=== PATIENT | male | born 1965 | race Caucasian/White ===

== ENCOUNTER 2023-04-11 15:21 | Emergency (ER) | payer OTHER, SELFPAY ==
[2023-04-11 15:28] VITALS: BP 142/88; PULSE 76; RESP 18; TEMP 36.3; O2SAT 99
--- NOTE | 2023-04-11 15:55 | ED.GENADULT ---
HPI - General Adult General Chief complaint: Extremity Injury, Upper Stated complaint: fall / lt arm and leg injury Time Seen by Provider: 04/11/23 15:26 Source: patient Mode of arrival: ambulatory Limitations: no limitations History of Present Illness HPI narrative: Patient is a 58-year-old male who presents with upper back pain between shoulder blades, left arm and left leg pain after fall on . [place] slipped in his wet gear falling onto the deck. Patient denies hitting his head. Since then patient states he has been very stiff and sore if he sits in 1 position for too long. Also reports large bruise to left bicep that continues to spread down his arm. Denies any numbness tingling or weakness to extremities, denies any headaches or vision changes. Has tried ibuprofen with mild relief. Related Data Home Medications Medication Instructions Recorded Confirmed cyanocobalamin (vitamin B-12) 1,000 mcg PO DAILY 03/21/23 04/11/23 1,000 mcg tablet doxycycline hyclate 100 mg tablet 100 mg PO DAILY 04/11/23 04/11/23 Allergies Allergy/AdvReac Type Severity Reaction Status Date / Time Penicillins AdvReac Mild Rash Verified 04/11/23 15:27 Review of Systems Review of Systems: All systems reviewed & are unremarkable except as noted in HPI and below Constitutional: Constitutional: Reports body ache(s), Denies chills, Denies fatigue, Denies fever(s), Denies headache(s), Denies malaise and Denies weakness Eyes: Eyes: Denies blurry vision, Denies irritation and Denies loss of vision ENT: Denies otalgia, Denies headache(s), Denies nasal discharge, Denies sinus pain and Denies sore throat Cardiovascular: Cardiovascular: Denies chest pain, Denies irregular heart rhythm and Denies dyspnea Respiratory: Respiratory: Denies dyspnea Gastrointestinal: Gastrointestinal: Denies abdominal pain, Denies melena, Denies hematochezia, Denies diarrhea, Denies nausea and Denies vomiting Musculoskeletal: Musculoskeletal: Denies back pain, Denies myalgias, Denies arthralgias and Reports stiffness Integumentary/Breasts: Skin/Breast: Denies pruritus and Denies rash Neurologic: Denies headache(s), Denies loss of vision and Denies weakness Psychiatric: Psychiatric: Reports no additional psychiatric complaints Endocrine: Endocrine: Denies fatigue PMFSH Past Medical History Medical History (Updated 04/11/23 @ 16:00 by Eli Zimmer APRN) Colon polyps tubular adenoma, hyperplastic DM2 (diabetes mellitus, type 2) Dyslipidemia HTN (hypertension) Rosacea Transaminitis Vitamin B12 deficiency Vitamin D deficiency Surgical History Surgical History H/O ventral hernia repair Dr. Berry 2002 History of arthroscopy of right shoulder Family History Family History Other Cerebrovascular accident Diabetes mellitus Social History Social History (Updated 03/14/23 @ 12:04 by Marie Shah MA) Smoking status: Former smoker Alcohol intake: current Drinks per week: 4 Substance use: never Current Housing: Decline to Answer Concerned About Future Housing: Decline to Answer Difficulty Paying Gas/Electric Bills: Decline to Answer Difficulty Paying for Meds: Decline to Answer Currently Unemployed: Decline to Answer Education: Decline to Answer Difficulty w/ Childcare or Family Care: Decline to Answer Living arrangements: with family Occupation/Education: occupation Gender identity (if verbalized by the patient): Male Comments At time of signature, agree with nursing past medical, surgical, social and family history. There is no relevant family history pertinent to the presenting complaint. Exam Const: General: cooperative, healthy appearing, comfortable, no acute distress and well nourished Nutritional Appearance: well nourished Orientation/consciousnes
== END 2023-04-11 16:03 | disposition home or self-care (01) ==
PROVIDERS: Emergency Provider Nurse Practitioner Family; PCP Physician Assistant Medical
DX: M54.6 Pain in thoracic spine (principal); M79.602 Pain in left arm; M79.605 Pain in left leg; E11.9 Type 2 diabetes mellitus without complications; E78.5 Hyperlipidemia, unspecified; I10 Essential (primary) hypertension; E53.8 Deficiency of other specified B group vitamins; Z87.891 Personal history of nicotine dependence
CPT/HCPCS: 99213; G0463

== ENCOUNTER 2025-01-01 00:35 | Day surgery (SDC) | payer OTHER, SELFPAY ==
[2024-12-26 12:03] VITALS: BMI 35.6
--- OUTSIDE RECORDS SUMMARY | 2025-01-01 00:38 | XMS_ITS | Clinical Summary ---
Author Organization [employer] Address [address] [place] [address] Care Team Providers Care Laborer Car Barn Name Role Phone Unavailable Primary Care Provider Unavailabl e Allergies No known active allergies Medications losartan (COZAAR) 100 mg tablet 08/02/2013 Activ e Active Problems No known active problems Immunizations Immunization Administration Dates Next Due INFLUENZA VACCINE QUADRIVALENT 6 MOS UP PF IM Social History Tobacco Use Types Packs/Day Years Used Date Smoking Tobacco: Some Days Cigars Smokeless Tobacco: Never Alcohol Use Standard Drinks/Week Comments No 0 (1 standard drink = 0.6 oz pur e alcohol) Sex and Gender Information Value Date Recorded Sex Assigned at Not on file Legal Sex 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 Gender Identity Not on file Sexual Orientation Not on file Last Filed Vital Signs Vital Sign Reading Time Taken Comments Blood Pressure 112/76 08/29/2013 1:11 PM HOTEL SERVICE MANAGER Pulse 85 08/29/2013 1:11 PM HOTEL SERVICE MANAGER Temperature 36.7 C (98.1 F) 08/29/2013 1:11 PM HOTEL SERVICE MANAGER Respiratory Rate 20 08/29/2013 1:11 PM HOTEL SERVICE MANAGER Oxygen Saturation 97% 08/29/2013 1:11 PM HOTEL SERVICE MANAGER Inhaled Oxygen Concentration - - Weight 131.1 kg (289 lb) 08/29/2013 1:11 PM HOTEL SERVICE MANAGER Height 182.9 cm (6') 08/29/2013 1:11 PM HOTEL SERVICE MANAGER Body Mass Index 39.2 08/29/2013 1:11 PM HOTEL SERVICE MANAGER Plan of Treatment Health Maintenance Due Date Last Done Comments DTAP/TDAP/TD VACCINES (1 - Tdap) 1985 HEPATITIS B VACCINES (1 of 3 - 19+ 3-dose series) 04/1985 COLORECTAL SCREENING 2011 Colorectal Cancer Screening 2011 FIT-DNA Q 3 years 2011 FIT/FOBT Q 1 year 2011 Flex Sig/CT Colonography Q 5 years 2011 ZOSTER VACCINE (1 of 2) 01/08/2016 INFLUENZA VACCINE (#1) 2024 07/25/2019 Insurance [facility] OPEN ACCESS HMO
--- OUTSIDE RECORDS SUMMARY | 2025-01-01 00:38 | XMS_ITS | Clinical Summary ---
Author Organization [facility] Address [address] [address] Care Team Providers Care Motors Assembler Name Role Phone Francisco J Tirado MD Primary Care Provider [phone] Allergies No known active allergies Medications amLODIPine (NORVASC) 5 mg tablet TK 1 T PO QAM 3 9 Active losartan (COZAAR) 100 mg tablet TK 1 T PO QD 3 9 Active Ozempic 1 mg/dose (4 mg/3 mL) pen injector injection ADMINISTER 1 MG UNDER THE SKIN WEEKLY 4 Active Ozempic 0.25 mg or 0.5 mg (2 mg/3 mL) pen injector injection ADMINISTER 0.25 MG UNDER THE SKIN WEEKLY FOR 4 WEEKS 4 Active rosuvastatin (CRESTOR) 10 mg tablet Take 1 tablet (10 mg total) by mouth daily 4 Active predniSONE (DELTASONE) 20 mg tablet 4 Active BD Ultra-Fine Orig Pen Needle 29 gauge x 1/2 needle USE WITH OZEMPIC DIRECTED 4 Active methocarbamoL (ROBAXIN) 500 mg tablet Take 1 tablet (500 mg total) by mouth 3 (three) times a day as needed for muscle spasms 4 Active metFORMIN XR (GLUCOPHAGE XR) 500 mg 24 hr tablet Take 1 tablet (500 mg total) by mouth cloth stretcher before breakfast 1 Active ketoconazole (NIZORAL) 2 % shampoo APPLY EXTERNALLY TO SCALP/BODY DAILY DIRECTED 10/28/202 4 Active fluorouraciL (EFUDEX) 5 % cream 4 Active doxycycline 100 mg tablet Take 1 tablet/capsule (100 mg total) by mouth daily 4 Active Active Problems Problem Noted Date Diagnosed Date Encounter for screening colonoscopy 01/03/2019 Overview (01/03/2019): Added automatically from request for surgery [id number] Hypertension 09/13/2014 Overview (2017): High blood pressure Surgical History Surgery Date Site/Laterality Comments UMBILICAL HERNIA REPAIR ROTATOR CUFF REPAIR 10/03/2005 - 10/02/2006 Right SOFT TISSUE CYST EXCISION 10/03/2014 - 10/02/2015 Family History Medical History Relation Name Comments Diabetes Other 1 Family history of Diabetes mellitus; Other Other 2 Family history of Melanoma Skin; Relation Name Status Comments Other 1 Other 2 Social History Tobacco Use Types Packs/Day Years Used Date Smoking Tobacco: Some Days Smokeless Tobacco: Never Comments:10/week Alcohol Use Standard Drinks/Week Comments Yes 0 (1 standard drink = 0.6 oz pur e alcohol) 5 days a week Sex and Gender Information Value Date Recorded Sex Assigned at Not on file Legal Sex 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 Gender Identity Not on file Sexual Orientation Not on file Obstetrics History Last Filed Vital Signs Vital Sign Reading Time Taken Comments Blood Pressure 125/85 01/11/2019 1:47 PM CDT Pulse 72 01/11/2019 1:47 PM CDT Temperature 36.4 C (97.5 F) 01/11/2019 1:37 PM CDT Respiratory Rate 16 01/11/2019 1:47 PM CDT Oxygen Saturation 95% 01/11/2019 1:47 PM CDT Inhaled Oxygen Concentration - - Weight 128.8 kg (284 lb) 08/22/2024 8:21 AM MAIL CARRIER TECHNICIAN Height 182.9 cm (6') 08/22/2024 8:21 AM MAIL CARRIER TECHNICIAN Body Mass Index 38.52 08/22/2024 8:21 AM MAIL CARRIER TECHNICIAN Plan of Treatment Health Maintenance Due Date Last Done Comments Depression Screening 1966 Hepatitis C Screening 1966 Prostate Cancer Screening-PSA 1966 DTaP/Tdap/Td Vaccine (1 - Tdap) 1977 Hepatitis B Screening 01/08/1984 Regular Well Visit/Exam 18-64 01/08/1984 Pneumococcal vaccine <65 (1 of 2 - PCV) 1985 Zoster Vaccine (1 of 2) 01/08/2016 Covid-19 Vaccine (3 - 2023- season) 2024, 11/29/2020 Influenza Vaccine (#1) 2024 07/25/2019 Colon Cancer Screening-Colonoscopy 01/11/20292018 Colon Cancer Screening-CT Colonography Discontinued Colon Cancer Screening-DNA Stool Discontinued 01/12/20 Colon Cancer Screening-FIT Discontinued 01/11/2019 Colon Cancer Screening-Sigmoidoscopy Discontinued 01/01 Procedures Procedure Name Priority Date/Time Associated Diagnosis Comments COLONOSCOPY 01/11/2019 12:40 PM CDT from Last 3 Months or Most Recently Relevant to Health Maintenance Results * COLONOSCOPY (01/11/2019 12:40 PM CDT) Anatomical Region Laterality Modality Other Narrative Procedure Note Armando Wen MD - 01/11/2019 12:40 PM CDT ENDOSCOPY LAB Patient Name: Gabriel Mcclain Procedure Date: 01/11/2019 12:40 PM Date of : 1965 Admit Type: Outpatient Age: 54 Gender: Male Attending MD: Armando Wen M.D. Room: [facility] 02 Note Status: Finalized Procedure: Colonoscopy Indications: Screening for colorectal malignant neoplasm Providers: Armando Wen M.D. Referring MD: Medicines: See the Anesthesia note for documentation of the administered medications Complications: No immediate complications. Estimated Blood Loss: Estimated blood loss: none. Procedure: Pre-Anesthesia Assessment: - Immediately prior to administration of medications,the patient was re-assessed for adequacy to receivesedatives. The benefits, risks and alternatives of the procedureand sedation were discussed and informed consent wasobtained. All questions were answered. Please refer to the signed informed consent document in the medical record. Thescope was passed under direct vision. The [id number] introduced through the anus and advanced to the cecum, identified by appendiceal orifice and ileocecal valve.The colonoscopy was performed without difficulty. Thepatient tolerated the procedure well. The quality of the bowel preparation was evaluated using the BBPS ([place] Bowel Preparation Scale) with scores of: Right Colon = 3, Transverse Colon = 3 and Left Colon = 3 (entire mucosa seen well with no residual staining, small fragments of stool or opaque liquid). The total BBPS score equals 9. The bowel preparation used was SUPREP. Bowel prep was administered using a split dose. Findings: The perianal and digital rectal examinations were normal. Three semi-sessile polyps were found in the sigmoid colon. The polyps were 1 to 3 mm in size. These polyps were removed with a cold biopsy forceps. Resection and retrieval were complete. Impression: - Three 1 to 3 mm polyps in the sigmoid colon. Resected and retrieved. Recommendation: - Await pathology results. - Repeat colonoscopy in 5 years for surveillance. - A polyp or polyps were removed during yourcolonoscopy today. After the pathology result of the polyp(s) is reviewed, the doctor who performed your colonoscopywill recommend follow-up colonoscopy to you based on current guidelines by gastroenterology societies: - If only small hyperplastic polyps from the rectum or sigmoid were removed, repeat the colonoscopy in 10years. - If 1 or 2 polyps less than 1 cm in size areadenomas, repeat the colonoscopy in 5 years. - If 3 or more polyps are adenomas, repeat thecolonoscopy in 3 years. - If there are 10 or more adenomas, repeat thecolonoscopy in 1 year. - If any polyp is 10 mm or greater in size, has villous histology or high grade dysplasia, repeat thecolonoscopy in 3 years. - If a polyp greater than 2 cm was removed with a piecemeal technique, repeat the colonoscopy in 6 monthsto be certain that there is no residual polyp. - Sessile serrated polyps are treated like adenomas for surveillance purposes. Armando Wen M.D. 01/11/2019 1:39:07 PM Number of Addenda: 0 Note Initiated On: 01/11/2019 12:40 PM Armando Wen MD ENDOSCOPY PROCEDURES Final Resul t from Last 3 Months or Most Recently Relevant to Health Maintenance Insurance [facility] CHOICE PLUS [facility] HMO/PPO Address: [facility] [address] [place] [address] [facility] ACCESS CHOICE Advance Directives For more information, please contact: [phone] * Full Code (Latest Code Status on File) Date Activated Date Inactivated Comments 01/11/2019 12:02 PM 01/11/2019 6:11 PM Care Teams Motors Assembler Relationship Specialty Start Date End Date Francisco J Tirado MD [address] [place] [id number] PCP - General 10/16/14
--- OUTSIDE RECORDS SUMMARY | 2025-01-01 00:38 | XMS_ITS | Referral Summary ---
Author Organization [facility] Address [address] [address] Care Team Providers Care Mathematics Professor Name Role Phone Francisco J Tirado MD Primary Care Provider [phone] Allergies No known active allergies Medications amLODIPine [...] 1 tablet (500 mg total) by mouth mobile crane operator before breakfast 1 Active ketoconazole (NIZORAL) 2 % shampoo APPLY EXTERNALLY TO SCALP/BODY DAILY DIRECTED 10/28/202 4 Active fluorouraciL (EFUDEX) 5 % cream 4 Active doxycycline 100 mg tablet Take 1 tablet/capsule (100 mg total) by mouth daily 4 Active Active Problems Problem Noted Date Diagnosed Date Encounter for screening colonoscopy 01/03/2019 Overview (01/03/2019): Added automatically from request for surgery [id number] Hypertension 09/13/2014 Overview (2017): High blood pressure Social History Tobacco Use Types Packs/Day Years Used Date Smoking Tobacco: Some Days Smokeless Tobacco: Never Comments:10/week Alcohol Use Standard Drinks/Week Comments Yes 0 (1 standard drink = 0.6 oz pur e alcohol) 5 days a week Sex and Gender Information Value Date Recorded Sex Assigned at Not on file Legal Sex Male 8:56 PM DECK ENGINEER Gender Identity Not on file Sexual Orientation [...] 128.8 kg (284 lb) 08/22/2024 8:21 AM DECK ENGINEER Height 182.9 cm (6') 08/22/2024 8:21 AM DECK ENGINEER Body Mass Index 38.52 08/22/2024 8:21 AM DECK ENGINEER Plan of Treatment Not on file Procedures Procedure Name Priority Date/Time Associated Diagnosis [...] Male Attending MD: Armando Wen M.D. Room: [facility] 02 Note Status: Finalized Procedure: Colonoscopy [...] Thescope was passed under direct vision. The [id number] introduced through the anus and advanced to the cecum, identified by appendiceal orifice and ileocecal valve.The colonoscopy was performed without difficulty. Thepatient tolerated the procedure well. The quality of the bowel preparation was evaluated using the BBPS ([place] Bowel Preparation Scale) with scores of: Right [...] Most Recently Relevant to Health Maintenance Insurance [facility] CHOICE PLUS [facility] ACCESS CHOICE Advance Directives For more information, please contact: [phone] * Full Code (Latest Code Status on File) Date Activated Date Inactivated Comments 01/11/2019 12:02 PM 01/11/2019 6:11 PM Care Teams Mathematics Professor Relationship Specialty Start Date End Date Francisco J Tirdao MD [address] [place] [id number] PCP - General 10/16/14
--- OUTSIDE RECORDS SUMMARY | 2025-01-01 00:38 | XMS_ITS | Clinical Summary ---
Author Organization [facility] Address [address] [place] [address] Care Team Providers Care Magazine Worker Name Role Phone Ivana Wharton Primary Care Provider [phone] Encounters Date Type Department Care Team Description 12/10/2024 8:08 AM CDT - 12/10/2024 11:59 PM CDT Hospital Encounter [facility] [address] [place], [place] [id number] Ivana Wharton PA Discharge Disposition: Home or Self Care (Routine Discharge) 12/10/2024 Travel from Last 3 Months Social History Tobacco Use Types Packs/Day Years Used Date Smoking Tobacco: Never Assessed Sex and Gender Information Value Date Recorded Sex Assigned at Male 11/27/2024 3:05 PM MANAGER INTERNSHIP Legal Sex Male 4:25 PM CDT Gender Identity Not on file Sexual Orientation Not on file Plan of Treatment Health Maintenance Due Date Last Done Comments Colorectal Cancer Screening Colonoscopy (10 Years) 1966 Annual Physical 1969 Hepatitis C 01/08/1984 DTaP, Tdap and Td Vaccines ( 1 - Tdap) 1985 Hepatitis B Vaccines (1 of 3 - 19+ 3-dose series) 1985 Zoster Vaccines (1 of 2) 01/08/2016 COVID-19 Vaccine (2023-2 5 season) 2024 12/21/2020, 11/29/2020 Influenza Adult (#1) 2024 07/25/2019 Meningococcal B Vaccine Aged Out No l onger eligible based on patient's age to complete this topic Meningococcal Vaccine Aged Out No audrey celine eligible based on patient's age to complete this topic Pneumococcal Vaccine: Pediatrics (0 to 5 Years) and At-Risk Patients (6 to 64 Years) Aged Out No longer eligible b ased on patient's age to complete this topic RSV Immunizations Under 20 Months Aged Out No longer eligible b ased on patient's age to complete this topic Procedures Procedure Name Priority Date/Time Associated Diagnosis Comments US ABD LIMITED Routine 12/10/2024 9:01 AM CDT Abnormal levels of other serum enzymes US SOFT TISS HEAD OR NECK Routine 12/10/2024 9:01 AM CDT Localized swelling, mass and lump, neck from Last 3 Months Results * US SOFT TISS HEAD OR NECK (12/10/2024 9:01 AM CDT) Anatomical Region Laterality Modality Head, Neck Ultrasound 12/11/2024 12:3 8 PM CDT Impressions 12/11/2024 12:42 PM CDT IMPRESSION: 1. Possible involuting slightly complex sebaceous cyst at level of palpable abnormality. Patient does state that it has decreased in size over the past 3 weeks Ordered By: IVANA WHARTON Interpreted By: Brian Espinoza, 12/11/2024 12:38 PM Narrative 12/11/2024 12:42 PM CDT [facility] [address] [address] [place] [address] IMAGING STUDIES: US SOFT TISS HEAD OR NECK DATE: 12/10/2024 8:09 AM CLINICAL HISTORY: swelling . PALPABLE LUMP FOR 3 WEEKS IN THE LEFT SUBMENTAL REGION. PATIENT STATES THAT IT HAS DECREASED IN SIZE. Comparison: No comparison FINDINGS: Imaging at the level of palpable lump in the left submental region. There is an underlying ill-defined hypoechoic subcutaneous lesion. No shadowing. No abnormal color flow. MEASURES 6.1 X 2.9 X 4.0 MM. MAY BE AN INVOLUTING SLIGHTLY COMPLEX SEBACEOUS CYST. Procedure Note Wade Espinoza MD - 12/11/2024 [place] [address] IMAGING STUDIES: US SOFT TISS HEAD OR NECK DATE: 12/10/2024 8:09 AM CLINICAL HISTORY: swelling . PALPABLE LUMP FOR 3 WEEKS IN THE LEFTSUBMENTAL REGION. PATIENT STATES THAT IT HAS DECREASED IN SIZE. Comparison: No comparison FINDINGS: Imaging at the level of palpable lump in the left submental region. There is an underlying ill-defined hypoechoic subcutaneous lesion. Noshadowing. No abnormal color flow. MEASURES 6.1 X 2.9 X 4.0 MM. MAY BE AN INVOLUTING SLIGHTLY COMPLEX SEBACEOUS CYST. IMPRESSION: 1. Possible involuting slightly complex sebaceous cyst at level ofpalpable abnormality. Patient does state that it has decreased in sizeover the past 3 weeks Ordered By: IVANA WHARTON Interpreted By: Brian Espinoza, 12/11/2024 12:38 PM us [facility] Final Result * US ABD LIMITED (12/10/2024 9:01 AM CDT) Anatomical Region Laterality Modality Abdomen Ultrasound 12/10/2024 5:21 PM CDT Impressions 12/10/2024 5:23 PM CDT IMPRESSION: 1. Moderate fatty infiltration of the liver without focal mass. No perihepatic ascites. 2. Mild hepatomegaly. Grossly normal gallbladder Ordered By: IVANA WHARTON Interpreted By: Brian Espinoza, 12/10/2024 5:21 PM Narrative 12/10/2024 5:[address] PM [address] [place] [id number] IMAGING STUDIES: US ABD LIMITED DATE: 12/10/2024 8:09 AM COMPARISON STUDIES: No previous exams available CLINICAL HISTORY: Abnormal levels of other serum enzymes. FINDINGS: Normal appearance to the gallbladder without calculi. No gallbladder wall thickening. Moderate fatty infiltration of the liver without focal mass..Hepatic and portal veins are patent.. Common bile duct measures.4.6 mm. Mild hepatomegaly with cc dimension of 19 cm.. Right kidney [id number] x 7.0 x 6.1 cm. No focal mass or hydronephrosis. Partially visualized pancreas without gross abnormality. Procedure Note Wade Espinoza MD - 12/10/2024 [facility] [address] [place] [address] IMAGING STUDIES: US ABD LIMITED DATE: 12/10/2024 8:09 AM COMPARISON STUDIES: No previous exams available CLINICAL HISTORY: Abnormal levels of other serum enzymes. FINDINGS: Normal appearance to the gallbladder without calculi. No gallbladder wallthickening. Moderate fatty infiltration of the liver without focal mass..Hepatic andportal veins are patent.. Common bile duct measures.4.6 mm. Mildhepatomegaly with cc dimension of 19 cm.. Right kidney [id number] x 7.0 x 6.1 cm. No focal mass orhydronephrosis. Partially visualized pancreas without gross abnormality. IMPRESSION: 1. Moderate fatty infiltration of the liver without focal mass. Noperihepatic ascites. 2. Mild hepatomegaly. Grossly normal gallbladder Ordered By: IVANA WHARTON Interpreted By: Brian Espinoza, 12/10/2024 5:21 PM [facility] Final Result from Last 3 Months Insurance [facility] Care Teams Magazine Worker Relationship Specialty Start Date End Date Ivana Wharton PA [address] [place] [id number] PCP - General PHYSICIAN BIBLICAL LANGUAGES PROFESSOR 11/27/24
--- OUTSIDE RECORDS SUMMARY | 2025-01-01 00:38 | XMS_ITS | Clinical Summary ---
Author Organization [facility] Address [address] [place] [address] Care Team Providers Care Pneumatic System Conveyor Operator Name Role Phone Unavailable Primary Care Provider Unavailabl e Source Comments [facility],non-owned Affiliates and Associated Physician Practices is amultiple site organization consisting of ambulatory clinics and hospital sitesin [place], [place], [place] and [place]. This disclosure is being madepursuant to the Care Everywhere program and may not contain all information available regarding this patient. Last updated 18.[facility] Allergies No known active allergies Medications * Be aware that medications may not be up to date on this document. Alwaysverify current medications with the patient. Medication Sig Dispensed Refills Start Date End Date Status metFORMIN ER 24hr (GLUCOPHAGE XR) 500 MG tablet Take 500 mg by mouth every morning 05/18/2021 Active amLODIPine (NORVASC) 5 MG tablet Take 5 mg by mouth every morning 05/18/2021 Active losartan (COZAAR) 100 MG tablet Take 100 mg by mouth once daily 05/18/2021 Active Active Problems Problem Noted Date Diagnosed Date Hypertension 09/13/2014 Overview (06/07/2021): High blood pressure Social History Tobacco Use Types Packs/Day Years Used Date Smoking Tobacco: Some Days Cigars Smokeless Tobacco: Never Alcohol Use Standard Drinks/Week Comments Yes 0 (1 standard drink = 0.6 oz pur e alcohol) PHQ-2 Answer Date Recorded PHQ2 TOTAL SCORE 0 06/07/2021 Sex and Gender Information Value Date Recorded Sex Assigned at Not on file Gender Identity Not on file Sexual Orientation Not on file Last Filed Vital Signs Vital Sign Reading Time Taken Comments Blood Pressure 140/90 06/07/2021 9:17 AM CDT Pulse 87 06/07/2021 9:17 AM CDT Temperature 36.8 C (98.2 F) 06/07/2021 9:17 AM CDT Respiratory Rate 18 06/07/2021 9:17 AM CDT Oxygen Saturation 98% 06/07/2021 9:17 AM CDT Inhaled Oxygen Concentration - - Weight 126.9 kg (279 lb 12.8 oz) 06/07/2021 9:17 AM CDT Height 177.8 cm (5' 10 ) 06/07/2021 9:17 AM CDT Body Mass Index 40.15 06/07/2021 9:17 AM CDT Plan of Treatment Health Maintenance Due Date Last Done Comments COLOGUARD (AGES 45-75) - COL ON CA SCREENING 1966 COLON MONITORING 1966 COLONOSCOPY - COLON CA SCREENING 1966 CT COLONOGRAPHY - COLON CA SCREENING 1966 Colorectal Cancer Screening 1966 FIT - COLON CA SCREENING 1966 FLEX SIG - COLON CA SCREENING 1966 LIPID TESTING 1966 HIV SCREENING 1981 HEPATITIS C SCREENING 01/03/1984 DTAP/TDAP/TD VACCINES (1 - Tdap) 1985 HEPATITIS B VACCINE (1 of 3 - 19+ 3-dose series) 1985 PNEUMOCOCCAL VACCINE 50+ (1 of 2 - PCV) 1985 ZOSTER VACCINE (1 of 2) 01/08/2016 SCREENING FOR DIABETES 06/07/2021 COVID-19 VACCINE (3 - 2023-2 5 season) 2024 12/21/2020, 11/29/2020 INFLUENZA VACCINE (#1) 2024 07/25/2019 DEPRESSION SCREENING 10/03/2024 HIB VACCINE Aged Out No longer eligi ble based on patient's age to complete this topic HPV VACCINE Aged Out No longer eligi ble based on patient's age to complete this topic MENINGOCOCCAL (Group B) VACCINE SHARED DECISION-MAKING Aged Out No longer eligible based on patient's age to complete this topic MENINGOCOCCAL GROUPS A/C/Y/W VACCINE Aged Out No longer eligible b ased on patient's age to complete this topic
--- OUTSIDE RECORDS SUMMARY | 2025-01-01 00:38 | XMS_ITS | Encounter Summary ---
Author Organization [facility] Address [address] [place] [address] Care Team Providers Care Apparatus Engineering Technologist Name Role Phone Unavailable Primary Care Provider Unavailabl e Encounter Details Date Type Department Care Team (Late st Contact Info) Description 06/12/2024 Lab Requisition [facility] - DermPath Lab [address] [place] [id number] Colleen Augirre MD [address] [facility] [address] [place] [address] Social History Tobacco Use Types Packs/Day Years [...] on file Sexual Orientation Not on file documented as of this encounter Plan of Treatment Not on file documented as of this encounter Procedures Procedure Name Priority Date/Time Associated Diagnosis Comments DERMATOPATHOLOGY Routine 06/12/2024 9:41 AM CDT documented in this encounter Results * DERMATOPATHOLOGY (06/12/2024 9:41 AM CDT) Case Report Dermatopathology Report Case: [id number] Authorizing Provider: Colleen Aguirre MD Collected: 06/12/2024 09:41 AM Ordering Location: [facility] - Received: 06/13/2024 10:35 AM DermPath Lab Pathologist: Letha Bruce MD Specimen: Skin, left lower leg 2:09 PM CDT DERMATOPATHOLOGY LABORATORY Final Diagnosis Specimen A. SKIN, left lower leg: SQUAMOUS CELL CARCINOMA IN SITU ARISING IN A CLONAL TYPE SEBORRHEIC KERATOSIS (D04.72) (see microscopic description) 4 2:09 PM [facility] DERMATOPATHOLOGY LABORATORY Clinical History R/O SCC 4 2:09 PM [facility] DERMATOPATHOLOGY LABORATORY Gross Description Specimen A: Received is one formalin filled container labeled with the patient's name and designated left lower leg. The specimen consists of a shave biopsy measuring [id number] mm. Jar 0. 4 2:09 PM [facility] DERMATOPATHOLOGY LABORATORY Microscopic Description Specimen A. SKIN, left lower leg: The epidermis shows parakeratosis, focal full thickness disorderly maturation of keratinocytes, and dyskeratotic cells. Sections show an associated proliferation of keratinocytes with overlying hyperkeratosis. Aggregates of keratinocytes with abundant pale-staining cytoplasm appear demarcated from surrounding basaloid keratinocytes. 4 2:09 PM [facility] DERMATOPATHOLOGY LABORATORY Disclaimer An external and internal positive and negative controls are appropriate for the histochemical, immunohistochemical and immunofluorescence stain(s) in this case (if any), except where stated explicitly. The performance characteristics of the stain(s) cited in this report were developed and its performance characteristic determined by the Dermatopathology Laboratory at [facility], directed by Dr. Geeta Andres. These tests need not be, and therefore are not, approved by the [place] Food and Drug Administration. The tests are used for clinical purposes. Billing Codes Specimen Charges Stain Charges 37476 1 4 2:09 PM CDT DERMATOPATHOLOGY LABORATORY Embedded Images 4 2:09 PM CDT DERMATOPATHOLOGY LABORATORY Pathology/Cytolo gy TISSUE SPECIMEN FROM SKIN / Unknown 06/12/2024 9:41 AM CDT 06/13/2024 10:35 AM CDT Colleen Aguirre MD LAB - PATHOLOGY/CYT OLOGY ORDERABLES DERMATOPATHOLOGY LABORATORY [facility] - Department of Dermatology [address] [phone] documented in this encounter Visit Diagnoses Not on filedocumented in this encounter
[2025-01-01 09:50] VITALS: BP 143/83; PULSE 70; RESP 20; TEMP 35.7; O2SAT 98
[2025-01-01 09:58] LABS: Glucose Point of Care 123 mg/dl (65-105)
[2025-01-01] MEDS: LACTATED RINGERS 1,000 ML 150 ML IV CONT (09:58)
--- NOTE | 2025-01-01 10:11 | P.PNAN_ITS ---
Anes - Initial Pre Proc Eval Procedure: Operation Date: 01/01/25 11:00 Proposed Procedures p Colonoscopy - Lukas Madsen MD Date/Time: 01/01/25 10:11 Surgeon: Lukas Madsen MD Pre Op Diagnosis: hx of colon polyps Patient Data Age: 59 Gender: M Height: 1.8 m Weight: 118.3 kg Last Vital Signs Temp 96.3 F L 01/01/25 09:50 Pulse 70 01/01/25 09:50 Resp 20 01/01/25 09:50 BP 143/83 H 01/01/25 09:50 Pulse Ox 98 01/01/25 09:50 O2 Del Method Room Air 01/01/25 09:50 Allergies Allergy/AdvReac Type Severity Reaction Status Date / Time Penicillins AdvReac Mild Rash Verified 01/01/25 09:49 Home Medications ?Medication ?Instructions ?Recorded ?Confirmed ?Type pen needle, diabetic 29 gauge #100 ea 05/28/24 11/26/24 Rx rosuvastatin 10 mg tablet 10 mg PO DAILY #90 tabs 11/16/24 01/01/25 Rx amlodipine 5 mg tablet 5 mg PO DAILY #90 tabs 11/26/24 01/01/25 Rx cholecalciferol (vitamin D3) 50 50 mcg PO DAILY #90 caps 11/26/24 01/01/25 Rx mcg (2,000 unit) capsule losartan 100 mg tablet 100 mg PO DAILY #90 tabs 11/26/24 01/01/25 Rx mecobalamin (vitamin B12) 1,000 1,000 mcg sublingual DAILY #90 tabs 11/27/24 01/01/25 Rx mcg disintegrating tablet,sublingual semaglutide 1 mg/dose (4 mg/3 mL) 1 mg (0.75 mL) subcut WEEKLY #3 mL 12/10/24 01/01/25 Rx subcutaneous pen injector (Ozempic) Laboratory Tests 01/01/25 09:54 POC Capillary Glucose 123 H mg/dl (65-105) Patient hx anesthesia problems: none Family hx anesthesia problems: none Results Review: All pre-operative results and documents have been reviewed as part of the pre- operative evaluation. [facility] Past Medical History Medical History Contracture of left hand Obstructive sleep apnea syndrome Colon polyps tubular adenoma, hyperplastic Rosacea Transaminitis Vitamin B12 deficiency Vitamin D deficiency Dyslipidemia HTN (hypertension) Surgical History Surgical History H/O ventral hernia repair Dr. Berry 2002 History of arthroscopy of right shoulder DM2 (diabetes mellitus, type 2) Family History Family History Other Cerebrovascular accident Diabetes mellitus Social History Social History Smoking status: Former smoker Tobacco type: cigars Alcohol intake: current Drinks per week: 4 Substance use: never Substance use type: does not use Current Housing: Decline to Answer Concerned About Future Housing: Decline to Answer Difficulty Paying Gas/Electric Bills: Decline to Answer Difficulty Paying for Meds: Decline to Answer Currently Unemployed: Decline to Answer Education: Decline to Answer Difficulty w/ Childcare or Family Care: Decline to Answer Living arrangements: with family Occupation/Education: occupation Gender identity (if verbalized by the patient): Male Anes - Eval Final PreProcedure Day of Procedure 01/01/25 10:11 Patient weight: obese Lungs: normal air movement Airway: Mallampati scale class II Neurological: alert and oriented Last oral intake: >/= 8 hours ASA classification: III Emergent: no Anesthetic plan: proceed Anesthesia type and monitoring: general GIVS and standard monitoring Results Review: All pre-operative results and documents have been reviewed as part of the pre- operative evaluation. HTN, hyperlipidemia, DM 147, LEMUEL no CPAP since wt loss. Informed Consent: The patient's anesthetic plan and its attendant risks and benefits were discussed with the patient/family/POA. Questions were solicited and answers provided to the satisfaction of the patient/family/POA.
--- NOTE | 2025-01-01 10:26 | PM.HPGS ---
History of Present Illness History of Present Illness Consent: Risks, benefits, and alternatives have been discussed and questions answered. Patient agrees to proceed with procedure. Chief complaint: hx of colon polyps Narrative: Gabriel Mcclain is a 59 year old male with colon polyp 5 years ago Review of Systems Review of Systems: All systems reviewed & are unremarkable except as noted in HPI and below PMFSH Past Medical History Medical History (Updated 01/01/25 @ 10:28 by Lukas Madsen MD) Contracture of left hand Obstructive sleep apnea syndrome Colon polyps tubular adenoma, hyperplastic Rosacea Transaminitis Vitamin B12 deficiency Vitamin D deficiency Dyslipidemia HTN (hypertension) Surgical History Surgical History H/O ventral hernia repair Dr. Berry 2002 History of arthroscopy of right shoulder DM2 (diabetes mellitus, type 2) Family History Family History Other Cerebrovascular accident Diabetes mellitus Social History Social History Smoking status: Former smoker Tobacco type: cigars Alcohol intake: current Drinks per week: 4 Substance use: never Substance use type: does not use Current Housing: Decline to Answer Concerned About Future Housing: Decline to Answer Difficulty Paying Gas/Electric Bills: Decline to Answer Difficulty Paying for Meds: Decline to Answer Currently Unemployed: Decline to Answer Education: Decline to Answer Difficulty w/ Childcare or Family Care: Decline to Answer Living arrangements: with family Occupation/Education: occupation Gender identity (if verbalized by the patient): Male Meds Home Medications and Allergies Home Medications ?Medication ?Instructions ?Recorded ?Confirmed ?Type pen needle, diabetic 29 gauge #100 ea 05/28/24 11/26/24 Rx rosuvastatin 10 mg tablet 10 mg PO DAILY #90 tabs 11/16/24 01/01/25 Rx amlodipine 5 mg tablet 5 mg PO DAILY #90 tabs 11/26/24 01/01/25 Rx cholecalciferol (vitamin D3) 50 50 mcg PO DAILY #90 caps 11/26/24 01/01/25 Rx mcg (2,000 unit) capsule losartan 100 mg tablet 100 mg PO DAILY #90 tabs 11/26/24 01/01/25 Rx mecobalamin (vitamin B12) 1,000 1,000 mcg sublingual DAILY #90 tabs 11/27/24 01/01/25 Rx mcg disintegrating tablet,sublingual semaglutide 1 mg/dose (4 mg/3 mL) 1 mg (0.75 mL) subcut WEEKLY #3 mL 12/10/24 01/01/25 Rx subcutaneous pen injector (Ozempic) Allergies Allergy/AdvReac Type Severity Reaction Status Date / Time Penicillins AdvReac Mild Rash Verified 01/01/25 09:49 Vital Signs Vital Signs - 24 hr 01/01/25 09:50 Temperature 96.3 F L Pulse Rate 70 Respiratory Rate 20 Blood Pressure 143/83 H Pulse Oximetry 98 Oxygen Delivery Room Air Exam Const: General: comfortable and no acute distress HENMT: Face/Nose/Sinus: Normal nares present Eyes: General: appearance normal, both eyes and all related structures Neck: Neck: no JVD Resp: Auscultation: clear to auscultation bilaterally Cardio: Rate: regular rate Rhythm: regular rhythm GI: Inspection: non-distended GI Palp: Yes Soft to palpation Skin: General skin exam: normal color Neuro: Speech: normal speech Extrem: General: normal to inspection Psych: Mental Status: mental status grossly normal Assessment and Plan Assessment and plan (1) Colon polyps: Code(s): K63.5 - Polyp of colon Status: Acute Assessment and Plan: colonoscopy
[2025-01-01 10:42] VITALS: BP 115/77; PULSE 65; RESP 18; O2SAT 97
[2025-01-01 10:52] VITALS: BP 119/80; PULSE 64; RESP 20; O2SAT 98
[2025-01-01 11:02] VITALS: BP 131/86; PULSE 61; RESP 23; O2SAT 100
== END 2025-01-01 11:12 | disposition home or self-care (01) ==
PROVIDERS: PCP Physician Assistant Medical; Referring Provider Physician Assistant Medical; Visit Provider Internal Medicine Gastroenterology
PROC: 0DJD8ZZ Inspection of Lower Intestinal Tract, Via Natural or Artificial Opening Endoscopic (ICD-10-PCS; CPT 45378; principal; 2025-01-01 11:00)
DX: Z12.11 Encounter for screening for malignant neoplasm of colon (principal); D12.4 Benign neoplasm of descending colon; K64.8 Other hemorrhoids; K57.30 Diverticulosis of large intestine without perforation or abscess without bleeding; E78.5 Hyperlipidemia, unspecified; I10 Essential (primary) hypertension; G47.33 Obstructive sleep apnea (adult) (pediatric); E53.8 Deficiency of other specified B group vitamins; E55.9 Vitamin D deficiency, unspecified; E11.9 Type 2 diabetes mellitus without complications; E66.9 Obesity, unspecified; Z68.36 Body mass index [BMI] 36.0-36.9, adult; Z79.85 Long-term (current) use of injectable non-insulin antidiabetic drugs; Z98.890 Other specified postprocedural states; Z87.891 Personal history of nicotine dependence; Z82.49 Family history of ischemic heart disease and other diseases of the circulatory system
CPT/HCPCS: 45385; 82948; 88305; J2003; J2704; J7120